=== PATIENT | female | born 1970 | race Caucasian/White ===

== ENCOUNTER 2020-02-27 09:06 | Outpatient (REF) | payer BC, SELFPAY ==
[2020-02-27 13:53] LABS: TSH 1.21 uIU/mL (0.36-3.74)
== END 2020-02-27 09:26 ==
LOC: NCHCN 09:06
PROVIDERS: PCP Nurse Practitioner Family; Visit Provider Nurse Practitioner Family
DX: E03.9 Hypothyroidism, unspecified (principal)
CPT/HCPCS: 84443

== ENCOUNTER 2020-04-05 01:33 | Outpatient (CLI) | payer BC, SELFPAY ==
--- NOTE | 2020-04-05 07:00 | DI.MAMMO_ITS ---
MAMMO SCREENING CLINICAL HISTORY: screening,Z12.39. TECHNIQUE: Bilateral full field digital CC and MLO mammographic images were obtained with 3D tomosyn thesis and utilizing computer aided detection (CAD). COMPARISON: Prior mammograms dating back to 2012, the most recent being September 2018. FINDINGS: Fibroglandular tissue in both breasts is quite dense, this decreasing the sensitivity mammogram for f inding in underlying lesions. There is a microcalcification in the left breast located 9 centimetres in from the nipple which has s ignificantly increased when compared to previous study. Spot Mag CC and spot Mag straight lateral vie ws recommended. No new obvious spiculated masses. There is no significant architectural distortion no r skin thickening-retraction. IMPRESSION: Very dense bilateral fibroglandular tissue. Left breast microcalcification group significantly increa sed from previous. Spot Mag CC and spot Mag straight lateral views recommended. Given the density this patient's fibroglandular tissue I also recommend bilateral breast ultrasound BI-RADS Category 0 - Assessment Incomplete: Need additional imaging evaluation Breast Density - Category D - Extremely dense Breast density Category C or D implies that the patient has dense breast tissue. Dense breast tissue can make it harder to find cancer on a mammogram. Dense breast tissue is also associated with an incr eased risk of breast cancer. This information about the result of the mammogram report was provided to the patient to raise their awareness. Use this report when you speak with the patient about their risks for breast cancer, which includes their family history. At that time, you may recommend additional screening tests (Ultrasoun d or MRI) as these tests may add significant information. A negative radiographic report should not delay biopsy if a dominant or clinically suspicious mass is present. Up to ten percent of cancers are not identified on mammography. A negative report may reinforce clinical impression. Adenosis and dense breasts may obscure an underlying neoplasm. False positive reports average 6 to 10%. Patient will receive a letter notifying them of these results.
== END 2020-04-05 01:53 ==
PROVIDERS: PCP Nurse Practitioner Family; Visit Provider Nurse Practitioner Family
DX: Z12.31 Encounter for screening mammogram for malignant neoplasm of breast (principal); R92.0 Mammographic microcalcification found on diagnostic imaging of breast
CPT/HCPCS: 77063; 77067

== ENCOUNTER 2020-04-14 02:50 | Outpatient (CLI) | payer BC, SELFPAY ==
--- NOTE | 2020-04-14 | DI.US_ITS ---
EXAM: MG MAMMO SCREEN CALL BACK UNI and U/S breast LT limited CLINICAL HISTORY: F/U MAMMO, LT BREAST MICROCALCIFICATION. TECHNIQUE: Craniocaudal and mediolateral oblique Full Field Digital Mammography views of the left br east with Computer Aided Diagnosis followed by Tomosynthesis and left breast ultrasound. COMPARISON: Previous are available for comparison. FINDINGS: Mammography/Tomosynthesis: Masses/Architectural Distortion: None seen. Microcalcifictions: There has been interval increase in number of a grouping of calcifications in the posterior central left breast. Skin Thickening/Nipple Retraction: None. Left breast US: Echotexture: Normal appearance of the glandular tissue. Shadowing: No suspicious foci. Cyst: Multiple simple cysts are seen throughout the sonographically evaluated area of the left breast . Solid lesions: None seen. Ductal dilation: None. IMPRESSION: 1. Interval increase in number of a grouping of microcalcifications in the upper posterior central le ft breast. 2. Biopsy is recommended for further evaluation. 3. The findings were discussed with the patient on the date of the examination. Findings were discus sed with the patient's primary care provider on the date of the examination. BI-RADS Category 4 - Suspicious Abnormality: Biopsy should be considered Breast Density - Category C - Heterogeneously dense The mammogram demonstrates the patient's breast tissue is dense. Dense breast tissue is very common a nd is not abnormal but dense breast tissue can make it harder to find cancer on a mammogram. Also, de nse breast tissue may increase their breast cancer risk. This information [facility] was provided to the patient to raise their awareness. Use this report when you speak wi th the patient about their risks for breast cancer, which includes their family history. At that time , you may recommend for more screening tests (Ultrasound or MRI) as they might be useful based on the ir risk. A negative radiographic report should not delay biopsy if a dominant or clinically suspicious mass is present. Up to ten percent of cancers are not identified on mammography. A negative report may reinforce clinical impression. Adenosis and dense breasts may obscure an underlying neoplasm. False positive reports average 6 to 10%. Patient will receive a letter notifying them of these results.
== END 2020-04-14 03:10 ==
PROVIDERS: PCP Nurse Practitioner Family; Visit Provider Nurse Practitioner Family
DX: R92.0 Mammographic microcalcification found on diagnostic imaging of breast (principal)
CPT/HCPCS: 76642; 77063; 77067

== ENCOUNTER 2020-08-18 15:22 | Outpatient (REF) | payer BC, SELFPAY | END 2020-08-18 15:23 | disposition home or self-care (01) | LOC: LBN 15:22 | PROVIDERS: PCP Nurse Practitioner Family; Visit Provider Nurse Practitioner Family | DX: R30.0 Dysuria (principal) | CPT/HCPCS: 87086 ==

== ENCOUNTER 2020-08-27 01:57 | Outpatient (CLI) | payer BC, SELFPAY ==
[2020-08-27 09:32] LABS: CREATININE 0.8 mg/dL (0.55-1.02)
== END 2020-08-27 01:58 | disposition home or self-care (01) ==
LOC: LBO 01:57
PROVIDERS: PCP Nurse Practitioner Family; Visit Provider Radiology Radiation Oncology
DX: C50.912 Malignant neoplasm of unspecified site of left female breast (principal); Z17.0 Estrogen receptor positive status [ER+]
CPT/HCPCS: 36415; 82565

== ENCOUNTER 2020-10-01 04:20 | Outpatient (CLI) | payer BC, SELFPAY ==
[2020-10-01] MEDS: Gadoterate meglumine 20 ML VIAL 15 ML IVP (08:54)
--- NOTE | 2020-10-01 09:15 | DI.MRI_ITS ---
Exam(s) MR ABDOMEN WO/W EXAM: MR ABDOMEN WO/W CLINICAL HISTORY: LT BREAST CA,C50.912RT LOBE LIVER LESION,K76.9,? HEMANGIOMA,F/U ABNL CHEST TECHNIQUE: Multiplanar multisequence MRA of the Abdomen was performed. CONTRAST MATERIAL: IV Contrast: 15 mL of Dotarem contrast administered. COMPARISON: US USBRUNILTD from 05/13/2014 US USBRUNILTD from 05/13/[address] CHEST W from 09/06/[address] CHEST W from 09/06/2020 FINDINGS: Liver: 17 millimeter circumscribed homogeneous lesion in the posteromedial right lobe of the liver at the level of the right kidney. Low signal on T1 weighted images and high-signal T2 weighted images. Peripheral puddling arterial phase. Homogeneous enhancement venous and delayed phases. The findin gs are consistent with a hemangioma.. Pancreas: Unremarkable. Gallbladderand Bile Ducts: Unremarkable. Adrenals: Unremarkable. Kidneys: Unremarkable. Spleen: Unremarkable. Aorta: Unremarkable. Soft Tissues: Unremarkable. Bone: Unremarkable. Lymph Nodes: Unremarkable. IMPRESSION: Lesion seen on chest CT in the right lobe of the liver is consistent with a hemangioma on MRI. DATA REPOSITORY:
== END 2020-10-01 04:40 ==
PROVIDERS: PCP Nurse Practitioner Family; Visit Provider Radiology Radiation Oncology
DX: C50.912 Malignant neoplasm of unspecified site of left female breast (principal); K76.9 Liver disease, unspecified
CPT/HCPCS: 74183

== ENCOUNTER 2020-12-20 08:58 | Outpatient (CLI) | payer BC, SELFPAY | END 2020-12-20 08:59 | disposition home or self-care (01) | LOC: DI.CM 08:59 | PROVIDERS: PCP Nurse Practitioner Family; Visit Provider Physician Assistant | DX: R07.89 Other chest pain (principal) | CPT/HCPCS: 93010 ==

== ENCOUNTER 2020-12-20 14:59 | Outpatient (REF) | payer BC, SELFPAY ==
[2020-12-21 14:57] LABS: COVID-19 RT-PCR UVMMC Result Negative (Negative)
== END 2020-12-20 15:00 | disposition home or self-care (01) ==
LOC: LBN 14:59
PROVIDERS: PCP Nurse Practitioner Family; Visit Provider Physician Assistant
DX: Z20.822 Contact with and (suspected) exposure to COVID-19 (principal)
CPT/HCPCS: U0003

== ENCOUNTER 2021-03-02 09:31 | Outpatient (REF) | payer BC, SELFPAY ==
--- NOTE | 2021-03-02 08:50 | PAPFT_PTH ---
PATIENT: Kate Hale LOC: [facility] U#:[id number] AGE/SX: 50/F ROOM: RE03/02/[address]: Ruba Camp NP : 1970 BED: DIS: 03/02/2021 SPEC #: [id number] RECD: 03/02/21 12:53 STATUS: VLADIMIR REBritany #: [id number] SHELDON: 03/02/21 08:[address]: Ruba Camp NP DEPT: [facility] Cytology RECD BY: Lolis Iglesias ENTERED: 03/02/21 12:54 SP TYPE: PAPFT OTHR DR: Serafin Chandra NP Tissues: 1 - CX/ENDOCX FOR PAP SMEARS Procedures: PAP THIN PREP/UVM Screening HPV DNA PROBE Comments: [id number]
== END 2021-03-02 09:32 | disposition home or self-care (01) ==
LOC: LBN 09:31
PROVIDERS: PCP Nurse Practitioner Family; Visit Provider Nurse Practitioner Women's Health
DX: Z12.4 Encounter for screening for malignant neoplasm of cervix (principal); Z11.51 Encounter for screening for human papillomavirus (HPV)
CPT/HCPCS: 88142; 87624

== ENCOUNTER 2021-03-04 01:26 | Outpatient (CLI) | payer BC, SELFPAY ==
[2021-03-04 14:07] LABS: HCT 40.7 % (36.0-46.0); HGB 13.4 g/dL (11.2-15.7); MCH 30.5 pg (27.0-33.0); MCHC 32.9 % (32.0-36.0); MCV 92.7 fL (80-95); MPV 10.2 fL (8.0-11.0); Platelet Count 288 10^3/uL (130-400); RBC 4.39 10^6/uL (3.93-5.22); RDW 12.1 % (11.7-14.6); RDW-SD 41.4 fL; WBC 5.96 10^3/uL (4.4-10.8)
[2021-03-04 14:42] LABS: ALT 18 U/L (14-59); AST 13 U/L (15-37); Alkaline Phosphatase 129 U/L (46-116); Anion Gap 9.1 mmol/L (3-11); BUN 14 mg/dL (7-18); Bilirubin, Total 0.5 mg/dL (0.2-1.0); CO2 28.9 mmol/L (21.0-32.0); CREATININE 0.8 mg/dL (0.55-1.02); Calcium 9.3 mg/dL (8.5-10.1); Calculated LDL 156 mg/dL (<100); Chloride 102 mmol/L (98-107); Cholesterol 243 mg/dL (<200); Glucose 83 mg/dL (74-106); HDL Cholesterol 74 mg/dL (40-60); Potassium 3.9 mmol/L (3.5-5.1); Sodium 140 mmol/L (136-145); TSH 1.87 uIU/mL (0.36-3.74); Total Protein 7.4 g/dL (6.4-8.2); Triglyceride 65 mg/dL (<150)
[2021-03-04 16:04] LABS: Hemoglobin A1C 5.1 % (<5.7)
== END 2021-03-04 01:27 | disposition home or self-care (01) ==
LOC: LBO 01:26
PROVIDERS: PCP Nurse Practitioner Family; Visit Provider Nurse Practitioner Family
DX: K50.111 Crohn's disease of large intestine with rectal bleeding (principal); Z13.220 Encounter for screening for lipoid disorders; E03.8 Other specified hypothyroidism; Z13.1 Encounter for screening for diabetes mellitus
CPT/HCPCS: 36415; 80053; 80061; 85027; 83036; 84443

== ENCOUNTER 2022-03-15 02:06 | Outpatient (CLI) | payer BC, SELFPAY ==
[2022-03-15 11:59] LABS: HCT 41.8 % (36.0-46.0); MCH 31.3 pg (27.0-33.0); MCHC 33.5 % (32.0-36.0); MCV 93 fL (80-95); MPV 9.7 fL (8.0-11.0); Platelet Count 302 10^3/uL (130-400); RBC 4.48 10^6/uL (3.93-5.22); RDW 12.4 % (11.7-14.6); RDW-SD 42.8 fL; WBC 6.41 10^3/uL (4.4-10.8)
[2022-03-15 12:39] LABS: ALT 15 U/L (14-59); AST 14 U/L (15-37); Alkaline Phosphatase 108 U/L (46-116); Anion Gap 7.5 mmol/L (3-11); BUN 13 mg/dL (7-18); Bilirubin, Total 0.5 mg/dL (0.2-1.0); CO2 28.5 mmol/L (21.0-32.0); CREATININE 0.8 mg/dL (0.55-1.02); Calcium 9.1 mg/dL (8.5-10.1); Chloride 103 mmol/L (98-107); Estimated GFR 88.05 (mL/min/1.73m2); Glucose 89 mg/dL (74-106); Potassium 3.6 mmol/L (3.5-5.1); Sodium 139 mmol/L (136-145); TSH (W/Ref FT4) 1.28 uIU/mL (0.36-3.74); Total Protein 7.9 g/dL (6.4-8.2)
== END 2022-03-15 02:07 | disposition home or self-care (01) ==
LOC: LBO 02:06
PROVIDERS: PCP Nurse Practitioner Family; Visit Provider Nurse Practitioner Family
DX: E03.9 Hypothyroidism, unspecified (principal); K50.90 Crohn's disease, unspecified, without complications
CPT/HCPCS: 36415; 80053; 85027; 84443

== ENCOUNTER 2023-07-18 05:15 | Outpatient (CLI) | payer BC, SELFPAY ==
[2023-07-18 08:59] LABS: ALT 25 U/L (14-59); AST 15 U/L (15-37); Albumin 3.8 g/dL (3.4-5.0); Alkaline Phosphatase 119 U/L (46-116); Anion Gap 8.5 mmol/L (3-11); BUN 21 mg/dL (7-18); Bilirubin, Total 0.5 mg/dL (0.2-1.0); CO2 29.5 mmol/L (21.0-32.0); CREATININE 0.8 mg/dL (0.55-1.02); Calcium 9.5 mg/dL (8.5-10.1); Chloride 104 mmol/L (98-107); Estimated GFR 86.96 (mL/min/1.73m2); Glucose 89 mg/dL (74-106); Potassium 3.6 mmol/L (3.5-5.1); Sodium 142 mmol/L (136-145); Total Protein 7.8 g/dL (6.4-8.2)
[2023-07-18 09:12] LABS: TSH (W/Ref FT4) 2.07 uIU/mL (0.36-3.74)
[2023-07-19 19:16] LABS: Calculated LDL 208 mg/dL (<100); Cholesterol 313 mg/dL (<200); HDL Cholesterol 88 mg/dL (40-60); Triglyceride 86 mg/dL (<150)
== END 2023-07-18 05:16 | disposition home or self-care (01) ==
LOC: LBO 05:15
PROVIDERS: Nurse Practitioner Women's Health; PCP Nurse Practitioner Family; Visit Provider Nurse Practitioner Family
DX: E78.00 Pure hypercholesterolemia, unspecified (principal); E03.9 Hypothyroidism, unspecified; N95.1 Menopausal and female climacteric states
CPT/HCPCS: 36415; 80053; 80061; 84443

== ENCOUNTER 2023-07-24 16:48 | Emergency (ER) | payer BC, SELFPAY ==
[2023-07-24 16:51] VITALS: BP 179/98; PULSE 87; RESP 15; TEMP 36.4; O2SAT 100
[2023-07-24 16:54] VITALS: BP 179/98; PULSE 87; RESP 15; TEMP 36.4; O2SAT 100
--- NOTE | 2023-07-24 16:54 | W.ED.GENAD ---
Discharge Plan Disposition Patient Disposition: Home Condition: Stable Discharge Details Clinical Impression: Gastritis Primary Care Provider: Serafin Chandra ED Provider: Ryan Lane Home Meds and New Rx's Prescriptions: Continued magnesium 200 mg tablet 400 mg PO DAILY ascorbic acid (vitamin C) 1,000 mg capsule 1 g PO DAILY mesalamine 1.2 gram tablet,delayed release (DR/EC) 1.2 g PO DAILY levothyroxine 75 mcg tablet 75 mcg PO DAILY Qty: 30 0RF Veozah 45 mg tablet 45 mg PO DAILY Qty: 90 3RF Discharge Instructions Instructions: Famotidine (By mouth), Gastritis (ED) Additional Instructions: You were seen in the emergency department for your central abdominal pain that is worse after eating. This is consistent with either a peptic or duodenal ulcer and you are having some mild dark stools with a normal hemoglobin I do not suspect any significant bleeding. You have had problems with your gallbladder in the past and may need an updated HIDA scan to test for biliary dyskinesia. Otherwise I am placing you on the list for surgery follow-up for endoscopy. Your laboratory workup was reassuring for no emergent pathology and we did discuss the options of CT scan but it is best to forego this and lieu of an outpatient ultrasound for now and awaiting endoscopy. If your pain becomes more severe and especially if you get fevers and intractable nausea and vomiting please return and we will perform CT scan at that time. While awaiting definitive follow-up please try [id number] famotidine twice per day to allow for any possible ulcers to heal, this may take up to 2 weeks, if no relief at 2 weeks he may want to see if he can switch to a prescription omeprazole to trial that for 2 more weeks. Referrals: [facility] [Provider Group] (Endoscopy) Serafin Chandra, [employer] [Primary Care Provider] - Discharge Data Discharge Date/Time-TO BE ENTERED AT DEPARTURE: 07/24/23 19:26 HPI General Date/Time Provider Initiated Documentation: 07/24/23 16:54. HPI Narrative: 53 year-old female presents to ED today by POV/ambulating with her with a chief complaint of upper abdominal pain, intermittent, worse about 60 minutes after eating with onset for months. Quality described as burning pain, that resolves a while after it starts, consistent trigger with food, no radiation to fever, shortness of breath, vomiting, endorses some dark stools, denies dizziness, denies palpitations. Severity is described as 5-6/10. Palliating factors include nothing specific attempted. Provoking factors include nothing specific. Events leading up to the incident/Associated Symptoms: Patient has history of ulcerative colitis in remission. Patient not anticoagulated. Related Data Home Medications Medication Instructions Recorded Confirmed mesalamine 1.2 gram tablet,delayed 1.2 g PO DAILY 02/27/20 07/24/23 release levothyroxine 75 mcg tablet 75 mcg PO DAILY #30 tabs 05/14/23 07/24/23 ascorbic acid (vitamin C) 1,000 mg 1 g PO DAILY 06/26/23 07/24/23 capsule magnesium 200 mg tablet 400 mg PO DAILY 06/26/23 07/24/23 fezolinetant 45 mg tablet (Veozah) 45 mg PO DAILY #90 tabs 07/18/23 07/24/23 Previous Rx's Medication Instructions Recorded levothyroxine 75 mcg tablet 75 mcg PO DAILY #30 tabs 05/14/23 fezolinetant 45 mg tablet (Veozah) 45 mg PO DAILY #90 tabs 07/18/23 Allergies Allergy/AdvReac Type Severity Reaction Status Date / Time No Known Allergies Allergy Verified 07/24/23 16:55 General Stated Complaint: Abd Prob LOREE: 3 Review of Systems All systems reviewed & are unremarkable except as noted in HPI and below Exam Narrative Exam Narrative: GENERAL APPEARANCE: Well-nourished, non-toxic, awake and alert, atraumatic, no acute distress. SKIN: Warm, pink, dry, intact, without rashes/lesions/ulcerations. HEAD: Normocephalic, atraumatic, normal hair distribution for gender/age. EYES: Pupils PERRLA, EOMs intact without nystagmus, normal conjunctiva, no exudates on lids/lashes. ENT: Nares patent, no circumoral cyanosis, no facial swelling NECK: Supple, trachea midline, painless cervical ROM. LUNGS/CHEST: Lungs CTA bilaterally- no rhonchi/rales/wheezes diffusely, non-labored respirations, normal A/P diameter, symmetrical expansion, no chest wall deformity HEART (CV/PV): Regular rate and rhythm without murmur, no peripheral edema, no JVD. ABDOMEN: Soft, non-distended, no guarding, epigastric / RUQ tenderness, no CVA tenderness, no Rovsing's, no McBurney's point tenderness. MSK: Normal ROM, no swelling/deformity to bilateral UEs or LEs, moving all extremities without weakness, no cyanosis, spine midline without tenderness, normal curvature. NEURO: Mental Status AAOx4 - alert to person, place, time, events No facial droop, no forehead involvement. Motor: No focal weakness - strength 5/5 in bilateral UEs and LEs, proximal and distal, symmetric. Sensory: sensation intact to light touch globally. Gait normal: patient ambulated without ataxia into ED room. PSYCH: euthymic, cooperative, pleasant, appropriate speech Course Vital Signs Vital signs: Vital Signs Temperature 36.4 C 07/24/23 16:51 Pulse 87 07/24/23 16:51 Respiratory Rate 15 07/24/23 16:51 Blood Pressure 179/98 H 07/24/23 16:51 Pulse Oximetry 100 07/24/23 16:51 Temperature 36.4 C 07/24/23 16:51 Temperature Source Tympanic 07/24/23 16:51 Pulse 87 07/24/23 16:51 Respiratory Rate 15 07/24/23 16:51 Blood Pressure 179/98 H 07/24/23 16:51 Blood Pressure Position Sitting 07/24/23 16:51 Pulse Oximetry 100 07/24/23 16:51 Oxygen Delivery Method Room Air 07/24/23 16:51 Oxygen Flow Rate 0 07/24/23 16:51 Pain Level 8 07/24/23 16:51 Medical Decision Making This dictation utilizes [id number] dictation software and may contain unedited grammatical errors. 53 y/o F presents to ED today with a chief complaint of burning epigastric/RUQ pain that is consistently going on for months, trigger with eating, starts about 60 minutes after eating, fades over the next couple hours. Denies vomiting, endorses dark stool. Patients' medical history: History of migraine, hypercholesterolemia, former smoker, ulcerative colitis, Crohn's disease. Family and social history: Recent family stressors their daughter is choosing which college she wants to go to, patient also does drink occasional hard liquor moderate level. Pertinent exam findings / vital signs include epigastric and right upper quadrant tenderness without peritoneal signs, lungs CTA, stable vitals nontoxic. Differential / pathologies of concern include peptic ulcer, duodenal ulcer, Crohn's flare, esophagitis, biliary colic. Diagnostic studies of: -CBC, CMP, CRP/ESR, lipase, UA, lactate. -CBC shows no leukocytosis, no anemia -Lactate 1.5, do not suspect sepsis -LFTs within normal limits -Lipase within normal limits -UA benign -Inflammatory markers negative -Due to benign nature of labs I did discuss imaging options with the patient but we will defer for now and they will try to schedule an outpatient ultrasound of the right upper quadrant, and outpatient endoscopy and perform trials of famotidine at home for relief of gastritis pain Interventions of: -IV fluids, IV Protonix. ED Course/Assessment/Plan: 53-year-old female presents with epigastric pain that is worse after eating, it is about 60 minutes after eating that she gets this pain, I do suspect that she has a duodenal ulcer. She has moderate alcohol use, has emotional stressors lately and her consistent trigger with p.o. intake is suspicious for ulcerative pathology. Her labs are completely benign for any obstruction of the biliary tree, no signs of sepsis or severe infection. I counseled her on trying famotidine [id number] for couple weeks while they await scheduling of upper endoscopy and possible outpatient ultrasound of the right upper quadrant, discussed with them if any relief from this or failure to relieve they could try prescription omeprazole, strict return criteria for any developing fever, worsening pain, complete constipation, intractable nausea or vomiting Findings not consistent with biliary cholangitis, severe pancreatitis, SBO, intractable nausea or vomiting, sepsis, infection. Disposition of Gastritis. Patient verbalized understanding of the plan and return to ED criteria and engaged in shared decision making. Medical Records Medical records reviewed: Yes I reviewed the patient's medical records. Lab Data Lab results reviewed: Yes I reviewed the patient's lab results. Labs: Laboratory Tests Range/Units 07/24/23 07/24/23 17:20 17:30 WBC (4.4-10.8) 10^3/uL 9.79 RBC (3.93-5.22) 10^6/uL 4.52 Hgb (11.2-15.7) g/dL 14.0 Hct (36.0-46.0) % 42.5 MCV (80-95) fL 94 MCH (27.0-33.0) pg 31.0 MCHC (32.0-36.0) % 32.9 RDW (11.7-14.6) % 12.9 Plt Count (130-400) 10^3/uL 297 MPV (8.0-11.0) fL 10.0 Immature Gran % % 0.5 Neutrophils % % 70.9 Lymphocytes % % 16.3 Monocytes % % 7.6 Eosinophils % % 4.0 Basophils % % 0.7 Nucleated RBC % (0.0-0.3) % 0.0 Absolute Neutrophils (1.2-6.7) 10^3/uL 6.94 H Absolute Lymphocytes (1.2-3.4) 10^3/uL 1.60 Absolute Monocytes (0.1-0.8) 10^3/uL 0.74 Absolute Eosinophils (0.0-0.7) 10^3/uL 0.39 Absolute Basophils (0.0-0.2) 10^3/uL 0.07 ESR (0-30) mm/hr 23 VBG Lactate (0.6-1.4) mmol/L 1.5 H Sodium (136-145) mmol/L 141 Potassium (3.5-5.1) mmol/L 3.8 Chloride (98-107) mmol/L 105 Carbon Dioxide (21.0-32.0) mmol/L 26.3 Anion Gap (3-11) mmol/L 9.7 BUN (7-18) mg/dL 20 H Creatinine (0.55-1.02) mg/dL 1.0 Est GFR (CKD-EPI 2020) (mL/min/1.73m2) 66.53 Glucose (74-106) mg/dL 89 Calcium (8.5-10.1) mg/dL 9.4 Total Bilirubin (0.2-1.0) mg/dL 0.3 Conjugated Bilirubin (0.0-0.2) mg/dL 0.1 AST (15-37) U/L 15 ALT (14-59) U/L 21 Alkaline Phosphatase (46-116) U/L 129 H Troponin I (< or =60) ng/L < 50 C-Reactive Protein (<or=0.5) mg/dL 0.59 H Total Protein (6.4-8.2) g/dL 8.2 Albumin (3.4-5.0) g/dL 4.0 Lipase (16-77) U/L 45 Urine Color (Yellow) Yellow Urine Clarity (Clear) Clear Urine pH (5-8) 6.0 Ur Specific Viola (1.005-1.025) 1.015 Urine Protein (Neg-Trace) mg/dL Negative Urine Ketones (Negative) mg/dL Negative Urine Blood (Negative) Negative Urine Nitrite (Negative) Negative Urine Bilirubin (Negative) Negative Urine Urobilinogen (Up to 0.2) mg/dL 0.2 Ur Leukocyte Esterase (Negative) Negative Urine Glucose (Negative) mg/dL Negative Quality:SDOH Health Related Social Needs: No Data to Display PFSH All Active Problems (Updated 07/24/23 @ 18:25 by KASSANDRA Newell) Gastritis (Acute) Vasomotor symptoms due to menopause (Acute) Declining rx therapy at this time, will consider [facility] Pelvic floor dysfunction (Acute) Referral to pelvic floor PT Migraine (Chronic) [place]-menopausal (Acute) Hypercholesteremia (Acute) Former smoker (Acute) Quit in 2000 Hypothyroidism (Chronic) Ulcerative colitis (Chronic) 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 Crohn disease (Chronic) Medical History DCIS (ductal carcinoma in situ) of breast Lumpectomy in 2020 Breast calcification, left History of shingles Bronchitis (~12/02/11) Influenza with respiratory manifestation other than pneumonia (~12/02/11) Surgical History H/O tubal ligation (~12/29/05) Family History Mother , age 73 Lung cancer Hyperlipidemia Hypertension Father , age 78 Heart disease Hyperlipidemia Alzheimer disease Brother Diabetes Hyperlipidemia Hypertension Daughter No problems noted. Maternal Grandfather , age 60 Alcohol abuse Lung cancer Paternal Grandfather , age 80 Heart disease Maternal Grandmother , age 50 Stroke Paternal Grandmother , age 75 No problems noted. Social History Smoking/Tobacco Use Status: Former Tobacco Use tobacco type: cigarettes Quit Date: 05/24/00 Tobacco: How many years used: 15 Second Hand Exposure: Yes Smoking risk assessment performed?: Yes Alcohol Intake: current Alcohol Intake frequency: a few times a month Alcohol type: hard liquor Drug use: Never Substance use type: does not use Caregiver/Support person: No Household members: spouse and children Housing: house Communication Needs: None Do you need help understanding health information?: Never Pets and animals: Yes Pets and animals: dog(s) Sexually active: Yes Do you think of yourself as: straight/heterosexual Current gender identity: female What is your relationship status?: How often do you talk on the phone with friends or family?: three or more times per week How often do you attend cheondoism or congregational services?: decline to answer Do you belong to any clubs or organized social groups?: no Panel score (0-1 are the most socially isolated patients): 2 What type of physical activity do you participate in: none Special jasmeet needs: No Seatbelt use: always Helmet use: Yes Helmet use: always Drive intox or ride w/intox stage driver: No Do you feel safe in your relationship?: Yes Victim of physical abuse: No Victim of emotional abuse: No Victim of sexual abuse: No Would you like helpful sources: No
[2023-07-24] MEDS: Pantoprazole 40 MG VIAL IVP (17:31)
[2023-07-24] MEDS: Lactated Ringers 1,000 ML 1000 ML IV (17:43)
[2023-07-24 17:50] LABS: Lactate 1.5 mmol/L (0.6-1.4)
[2023-07-24 17:52] LABS: Abs Immature Grans 0.05 10^3/uL (0.0-0.06); Absolute Basophil Count 0.07 10^3/uL (0.0-0.2); Absolute Eosinophil Count 0.39 10^3/uL (0.0-0.7); Absolute Monocyte Count 0.74 10^3/uL (0.1-0.8); Absolute Neutrophil Count 6.94 10^3/uL (1.2-6.7); Basophils % 0.7 %; HCT 42.5 % (36.0-46.0); Immature Grans % 0.5 %; Lymphocytes % 16.3 %; MCHC 32.9 % (32.0-36.0); MCV 94 fL (80-95); Monocytes % 7.6 %; Neutrophils % 70.9 %; Platelet Count 297 10^3/uL (130-400); RBC 4.52 10^6/uL (3.93-5.22); RDW 12.9 % (11.7-14.6); RDW-SD 44.4 fL; WBC 9.79 10^3/uL (4.4-10.8)
[2023-07-24 17:53] LABS: Bilirubin Negative (Negative); Blood Negative (Negative); Clarity Clear (Clear); Glucose Negative (Negative); Ketones Negative (Negative); Leukocyte Esterase Negative (Negative); Nitrite Negative (Negative); Specific Gravity 1.015 (1.005-1.025); Urobilinogen 0.2 mg/dL (Up to 0.2)
[2023-07-24 17:53] LABS: ESR 23 mm/hr (0-30)
[2023-07-24 18:16] LABS: ALT 21 U/L (14-59); AST 15 U/L (15-37); Alkaline Phosphatase 129 U/L (46-116); Anion Gap 9.7 mmol/L (3-11); BUN 20 mg/dL (7-18); Bilirubin, Direct 0.1 mg/dL (0.0-0.2); Bilirubin, Total 0.3 mg/dL (0.2-1.0); C-Reactive Protein 0.59 mg/dL (<or=0.5); CO2 26.3 mmol/L (21.0-32.0); Calcium 9.4 mg/dL (8.5-10.1); Chloride 105 mmol/L (98-107); Estimated GFR 66.53 (mL/min/1.73m2); Glucose 89 mg/dL (74-106); Lipase 45 U/L (16-77); Potassium 3.8 mmol/L (3.5-5.1); Sodium 141 mmol/L (136-145); Total Protein 8.2 g/dL (6.4-8.2); Troponin I < 50 ng/L (< or =60)
[2023-07-24 19:25] VITALS: BP 148/75; PULSE 64; RESP 18; O2SAT 99
--- NOTE | 2023-07-25 12:06 | NUR.NOTE ---
Accessed chart to determine if a referral was done to surgery for endoscopy. No referral found and none documented. Nursing Note:
== END 2023-07-24 19:26 | disposition home or self-care (01) ==
PROVIDERS: Emergency Provider Physician Assistant; PCP Nurse Practitioner Family
DX: K29.70 Gastritis, unspecified, without bleeding (principal); Z87.891 Personal history of nicotine dependence
CPT/HCPCS: 36415; 80048; 80076; 83690; 85652; 96374; 99284; 81003; 83605; 84484; 85025; 86140; 99283; J2470

== ENCOUNTER 2023-09-19 11:38 | Day surgery (SDC) | payer BC, SELFPAY ==
--- NOTE | 2023-09-18 20:09 | W.PM.DSUDISC ---
Date of service: 09/19/23 Time of Service: 14:25 Discharge Plan Disposition Patient Disposition: Home Condition: Good Discharge Details Reason For Visit: EGD Attending Provider: Rajesh Hillman Primary Care Provider: Serafin Chandra Home Meds and New Rx's Prescriptions: Continued magnesium 200 mg tablet 400 mg PO DAILY mesalamine 1.2 gram tablet,delayed release (DR/EC) 1.2 g PO DAILY famotidine 20 mg tablet 20 mg PO BID levothyroxine 75 mcg tablet 75 mcg PO DAILY Qty: 90 3RF Discharge Instructions Instructions: Hiatal hernia Additional Instructions: Sonya, we are able to complete your upper endoscopy today without any difficulty. There are some signs of a very small sliding hiatal hernia. This occurs when the top part of your stomach slips above the diaphragm. I do not see any signs of irritation or inflammation around it, and I be skeptical that this is causing any of your symptoms. The true connection of your esophagus onto your stomach, which is known as the GE junction also looks fine. There may be just a little bit of mild reflux occurring here. But certainly nothing worrisome. The lining of your stomach looks okay at this point. I do not see any signs of ulceration or irritation. Similarly, the lining of your duodenum, which is the first part of your small intestine right your stomach empties into looks okay to the naked eye. I did do biopsies of the duodenum, stomach, GE junction, and esophagus to be thorough. There are some forms of gastritis or esophagitis that are not obvious by visual exam. They can also use these biopsies to test for Helicobacter pylori like we talked about beforehand. Will probably take a week or so to get the results of all the biopsies, but as soon as we have them, the office will be in touch with any other recommendations. In the meantime, I would continue with the famotidine, as there does seem to be some temporal relation with the initiation of the medication and improvement of your symptoms. Furthermore, you can certainly get gastritis, or irritation of the stomach from increase stomach acid that response to treatment with medication, despite the absence of obvious ulceration. If you need anything in the meantime, please do not hesitate to call or ask at any point. 1. If tolerated, consume a soft, low fiber diet for 1-2 days[address] not drive, drink alcohol, operate machinery, make critical decisions, or do activities that require coordination or balance for 24 hours. 3. You may experience a sore throat for 24 to 48 hours. You may use throat lozenges or gargle with warm salt water to relieve the discomfort. 4. Because air was put into your stomach during the procedure, you may experience some belching. 5. Go directly to the emergency room if you notice any of the following: Develop chills (warm to touch), or if you have a thermometer and your temperature is above 101 Difficulty breathing or difficultly swallowing Persistent vomiting Severe abdominal pain, other than gas cramps Severe chest pain Black, tarry stools Any bleeding ? exceeding one tablespoon 6. Call your physician if the site where your intravenous was started becomes red, swollen, painful, and warm to touch. 7. Your physician has reviewed your pre-procedure medications. Please continue to take those medications as previously ordered. You will be given specific information/education regarding any changes to your medications before leaving. Stand Alone Forms: Anesthesia Discharge InstGerardo Reed (DSU) Activity:: Activity as Tolerated Discharge Orders Discharge Orders: Discharge Order (Routine); Ordered 09/18/23 Ordered By: Rajesh Hillman DS: Diagnosis Discharge Diagnosis (1) Recurrent epigastric abdominal pain: Status: Acute Asessment and Plan: Follow-up on biopsy results
--- NOTE | 2023-09-18 20:10 | W.PM.ENDDOP ---
Date of service: 09/19/23 Time of Service: 14:28 Endoscopy Report DATE OF PROCEDURE: 09/19/23 PRE-OP DIAGNOSIS: gastritis POST-OP DIAGNOSIS: other (Small sliding hiatal hernia) PROCEDURE: EGD with biopsies SURGEON: Rajesh Hillman ANESTHESIA TYPE: General:No Airway ESTIMATED BLOOD LOSS: 10 PATHOLOGY: other (Random biopsies of the duodenum, gastric antrum, gastric body, GE junction, and esophagus) COMPLICATIONS: None DISPOSITION: same day INDICATIONS: Kate is a 53 year old woman with refractory midepigastric abdominal pain suspicious for gastritis PROCEDURE START TIME: 14:05 PROCEDURE END TIME: 14:15 FINDINGS: Normal-appearing GE junction and Z-line at 38 cm from the incisors. Possible sliding hiatal hernia. PROCEDURE DESCRIPTION: After the initiation of anesthesia, and with the assistance of a bite block, I advanced a standard gastroscope through the mouth past the hypopharynx and into the esophagus.? Under the direct vision of the scope, I advanced down the esophagus towards the stomach.? The upper, mid, and lower esophagus were all normal-appearing. The Z-line was regular, and measured 38 cm from the incisors. There was a little bit of mobility of the GE junction across what appeared to be the diaphragm. I did traverse the GE junction into the stomach, and insufflated into the rugae were obliterated. I performed retroflexion. Again, there are some subtle features that seem consistent with a sliding hiatal hernia. I do not see any signs of irritation around the GE junction, or the gastric cardia. Gastric mucosa was normal and healthy appearing. I did not see any signs of inflammation, irritation or ulceration. I advanced down around the incisura angularis across the antrum and pylorus, and into the duodenum. I was able to navigate down to about the third portion of the duodenum. Duodenal mucosa was pink and healthy appearing, with some slight bile staining. I did not see any signs of ulceration here. I did perform random biopsies of the duodenum with cold forceps. There was minimal bleeding. I brought the camera back up into the stomach proper, and examined it once again. Similarly, I did not see any signs of active inflammation. I did perform random biopsies of the gastric antrum and body to rule out other forms of gastritis or Helicobacter pylori. I then brought the camera back up to the GE junction. Again, it measured about 38 cm from the incisors. Cold forceps biopsies of the GE junction were performed. I also performed biopsies of the distal esophagus and midesophagus to rule out esophagitis. I then put the camera back into the stomach and emptied it. The camera was then brought out along the length of the esophagus 1 last time. No other abnormalities were appreciated.
[2023-09-19 11:55] VITALS: BP 147/90; PULSE 71; RESP 18; TEMP 36.3; O2SAT 99
[2023-09-19] MEDS: Lactated Ringers 1,000 ML 80 ML IV (12:29)
--- NOTE | 2023-09-19 13:52 | W.ANESPRE ---
General Info Date of Service Date Performed: 09/19/23 Height: 5 ft 7 in Weight: 69.5 kg Body Mass Index (BMI): 24.0 Surgical Procedure: Operation Date: 09/19/23 13:20 Proposed Procedure Side Surgeon p Gastroscopy Rajesh Hillman MD Actual Procedure Side Surgeon p Gastroscopy Not Applicable Rajesh Hillman MD Pre-Op Diagnosis Post-Op Diagnosis EGD Meds Allergies and Home Medications Allergies Allergy/AdvReac Type Severity Reaction Status Date / Time No Known Allergies Allergy Verified 09/19/23 12:08 Home Medication Medication Instructions Recorded mesalamine 1.2 gram tablet,delayed 1.2 g PO DAILY 02/27/20 release magnesium 200 mg tablet 400 mg PO DAILY 06/26/23 levothyroxine 75 mcg tablet 75 mcg PO DAILY #90 tabs 07/26/23 famotidine 20 mg tablet 20 mg PO BID 08/30/23 Current Visit Medications: Current Medications Generic Name Dose Route Start Last Admin Trade Name Freq PRN Reason Stop Dose Admin Hyoscyamine Sulfate 0.125 mg 09/18/23 20:12 Hyoscyamine 0.125 Mg Sl/Oral/Chew SL 10/18/23 20:11 DIRECTED PRN Ringer's Solution 1,000 mls @ 80 mls/hr 09/19/23 06:00 09/19/23 12:29 IV 10/18/23 23:59 80 mls/hr INFUSION AURE Administration IV Miscellaneous Supplies 1 each 09/19/23 06:00 Iv Access IV 10/18/23 23:59 DIRECTED AURE Ondansetron HCl 4 mg 09/18/23 20:12 Ondansetron 4 Mg/2 Ml Vial IVP 10/18/23 20:11 Q4H PRN PRN Nausea / Vomiting Sodium Chloride 0 ml 09/19/23 06:00 Normal Saline Flush 10 Ml Syr IV 10/18/23 23:59 PRN PRN Sodium Chloride 0 ml 09/19/23 06:00 Normal Saline 10 Ml Vial IJ 10/18/23 23:59 DIRECTED PRN Sterile Water 0 ml 09/19/23 06:00 Water,Injection,Sterile 10 Ml Vial IJ 10/18/23 23:59 DIRECTED PRN PFSH Active Problems Active Problems: Problem Status Onset Code Recurrent epigastric abdominal pain R10.13 Biliary dyskinesia K82.8 Vasomotor symptoms due to menopause N95.1 Pelvic floor dysfunction M62.89 Migraine G43.909 [place]-menopausal N95.1 Hypercholesteremia E78.00 Former smoker Z87.891 Hypothyroidism E03.9 Ulcerative colitis K51.90 Arthropathy M12.9 Crohn disease K50.90 Medical History Medical History DCIS (ductal carcinoma in situ) of breast Lumpectomy in 2020 Breast calcification, left History of shingles Bronchitis (~12/02/11) Influenza with respiratory manifestation other than pneumonia (~12/02/11) Surgical History Surgical History History of esophagogastroduodenoscopy (~08/2023) H/O tubal ligation (~12/29/05) Tobacco Smoking/Tobacco Use Status: Former Tobacco Use Passive smoking exposure: Yes Second hand exposure: Yes Alcohol Alcohol Intake: current Alcohol intake frequency: a few times a month Alcohol type: hard liquor Substance Use Substance use: Never Substance use type: does not use Vital Signs and Lab Results Vital Signs Most Recent Vital Signs in EMR: Most Recent Vital Signs Temp Pulse Resp BP Pulse Ox 36.3 C L 71 18 147/90 H 99 09/19/23 11:55 09/19/23 11:55 09/19/23 11:55 09/19/23 11:55 09/19/23 11:55 Point of Care Results Point of Care Results: POC- Test(urine) Negative 09/19/23 12:28 Lab Results Blood Type / Crossmatch: No Data to Display Complete Blood Count: No Data to Display Complete Metabolic Panel: No Data to Display Liver Function Panel: No Data to Display Coagulation Panel: No Data to Display Cardiac Panel: No Data to Display Arterial Blood Gas: No Data to Display Venous Blood Gas: No Data to Display Pancreas Panel: No Data to Display Thyroid Panel: No Data to Display Infectious Disease: No Data to Display Blood Cultures: No Data to Display Toxicology Panel: No Data to Display Anesthesia Assessment and Plan Anesthesia History Personal History: No History of Anesthesia Complications Family History: No Family History of Anesthesia Complications Exercise Tolerance Exercise Tolerance: Metabolic Equivalents>4 Pertinent Negatives Pertinent Negatives: No Symptoms of GERD Cardiac & Pulmonary Exam Cardiac Exam: Normal S1/S2 Heart Sounds Pulmonary Exam: Clear Bilateral Breath Sounds Implantable Cardiac Device Does patient have a Pacemaker or an ICD?: No Airway Exam Known Difficult Airway: No Mallampati Class: 2 Mouth Opening: Normal (> 3cm) Thyromental Distance: Greater than 3 cm Neck Range of Motion: Full ROM Neck Circumference: Normal Teeth Condition: Normal Dentition ASA Classification ASA Score: ASA 2 Emergency Case?: No NPO Status NPO Status: NPO Clears >2 hours, Solids >8 hours Anesthesia Plan Resuscitation Status: Full Code Anesthesia Technique: General Anesthesia Airway Planned: Natural Airway Monitors Used: Standard Monitors
[2023-09-19 13:53] VITALS: BMI 24.0
--- NOTE | 2023-09-19 14:08 | STOM_PTH ---
PATIENT: Kate Hale LOC: [facility] U#:[id number] AGE/SX: 53/F ROOM: RE09/19/[address]: Rajesh Hillman MD : 1970 BED: DIS: 09/19/2023 SPEC #: [id number] RECD: 09/19/23 16:50 STATUS: [facility] #: [id number] SHELDON: 09/19/23 14:[address]: Rajesh Hillman DEPT: Surgical Specimen RECD BY: Lolis Iglesias ENTERED: 09/19/23 16:52 SP TYPE: STOMACH OTHR DR: Serafin Chandra, CHILD CARE ASSOCIATE Tissues: 1 - BIOPSY BOWEL 2 - STOMACH BIOPSY 3 - STOMACH BIOPSY 4 - ESOPHAGUS BIOPSY 5 - ESOPHAGUS BIOPSY Procedures: GROSS AND MICRO LEVEL 4 Comments: [id number]
[2023-09-19 14:21] VITALS: BP 137/85; PULSE 80; RESP 18; TEMP 36.2; O2SAT 96
--- NOTE | 2023-09-19 14:30 | W.ANESPOSTOP ---
Postoperative Evaluation Date, Time and Location Date Performed: 09/19/23 Time Performed: 14:30 Patient Location: Day Surgery Unit Vital Signs Most Recent Imported Vital Signs: Most Recent Vital Signs Temp Pulse Resp BP Pulse Ox 36.2 C L 80 18 137/85 96 09/19/23 14:21 09/19/23 14:21 09/19/23 14:21 09/19/23 14:21 09/19/23 14:21 Pain Score Most Recent Pain Score: Most Recent Pain Score Pain Level 0 09/19/23 14:21 Assessment Mental Status: Awake (Alert & Oriented to Patient Baseline) Airway and Respiratory Function: Patent airway with normal (patient baseline) respiratory exam Cardiovascular Function: Hemodynamically Stable Hydration Status: Adequately Hydrated Nausea & Vomiting: No Nausea or Vomiting Pain: Pt. Denies Any Pain Peripheral Nerve Block: Patient did not receive a nerve block
[2023-09-19 14:50] VITALS: BP 143/81; PULSE 68; RESP 16; TEMP 36; O2SAT 99
== END 2023-09-19 15:03 | disposition home or self-care (01) ==
LOC: SUR 11:38
PROVIDERS: PCP Nurse Practitioner Family; Visit Provider Surgery
PROC: 0DJ68ZZ Inspection of Stomach, Via Natural or Artificial Opening Endoscopic (ICD-10-PCS; CPT 43235; principal; 2023-09-19 13:15)
DX: R10.13 Epigastric pain (principal); K44.9 Diaphragmatic hernia without obstruction or gangrene; K22.89 Other specified disease of esophagus
CPT/HCPCS: 43239; 81025; 88305; J2001; J2704

== ENCOUNTER 2023-12-13 14:58 | Outpatient (REF) | payer BC, SELFPAY ==
[2023-12-13 23:21] LABS: COVID-19 PCR Negative (Negative); Influenza A PCR Negative (Negative); Influenza B PCR Negative (Negative); RSV PCR Negative (Negative)
[2023-12-13 23:51] LABS: Source Nasopharynx
== END 2023-12-13 14:59 | disposition home or self-care (01) ==
LOC: LBN 14:58
PROVIDERS: PCP Nurse Practitioner Family; Visit Provider Nurse Practitioner Family
DX: J98.8 Other specified respiratory disorders (principal)
CPT/HCPCS: 87637

== ENCOUNTER 2023-12-13 15:07 | Outpatient (CLI) | payer BC, SELFPAY ==
--- NOTE | 2023-12-13 15:00 | DI.RAD_ITS ---
Exam(s) XR CHEST 2V PA LATERAL EXAM: XR CHEST 2V PA LATERAL CLINICAL HISTORY: Cough, R05.9. TECHNIQUE: 2D digital imaging was performed. COMPARISON: CT CT CHEST W from 09/06/2020 FINDINGS: 2 views: Heart size is normal. The mediastinum is not widened. The lateral view there is some infiltrate evident over heart shadow which is most probably in the marta gular segment the left lung, given that there was some mild infiltrate at this level on CT scan of [facility] 2020. On the frontal view there is also a 1.5 by 1.0 cm density projected over the right lower shahzad ng field which is possibly a nodule. It is not seen on the lateral view. No other nodules evident. No pleural effusions. IMPRESSION: Bilateral findings as above. Recommend follow-up chest CT scan given the history here. DATA REPOSITORY: RADIATION DOSE DELIVERED:
== END 2023-12-13 15:27 ==
LOC: DI 15:16
PROVIDERS: PCP Nurse Practitioner Family; Visit Provider Nurse Practitioner Family
DX: R05.9 Cough, unspecified (principal); R91.8 Other nonspecific abnormal finding of lung field
CPT/HCPCS: 71046

== ENCOUNTER 2024-03-10 02:27 | Outpatient (CLI) | payer BC, SELFPAY ==
[2024-03-10 12:40] LABS: HCT 43.1 % (36.0-46.0); HGB 14.3 g/dL (11.2-15.7); MCHC 33.2 % (32.0-36.0); MCV 94 fL (80-95); MPV 9.5 fL (8.0-11.0); Platelet Count 262 10^3/uL (130-400); RBC 4.61 10^6/uL (3.93-5.22); RDW-SD 41.3 fL; WBC 5.72 10^3/uL (4.4-10.8)
[2024-03-10 12:53] LABS: Hemoglobin A1C 5.1 % (<5.7)
[2024-03-10 13:15] LABS: ALT 15 U/L (14-59); AST 14 U/L (15-37); Alkaline Phosphatase 114 U/L (46-116); Anion Gap 7.9 mmol/L (3-11); BUN 11 mg/dL (7-18); Bilirubin, Total 0.42 mg/dL (0.2-1.0); CO2 28.1 mmol/L (21.0-32.0); CREATININE 0.9 mg/dL (0.55-1.02); Calcium 9.3 mg/dL (8.5-10.1); Calculated LDL 179 mg/dL (<100); Chloride 106 mmol/L (98-107); Cholesterol 285 mg/dL (<200); Glucose 90 mg/dL (74-106); HDL Cholesterol 88 mg/dL (40-60); Potassium 3.9 mmol/L (3.5-5.1); Sodium 142 mmol/L (136-145); TSH (W/Ref FT4) 1.15 uIU/mL (0.36-3.74); Total Protein 7.8 g/dL (6.4-8.2); Triglyceride 93 mg/dL (<150)
== END 2024-03-10 02:28 | disposition home or self-care (01) ==
LOC: LBO 02:27
PROVIDERS: PCP Nurse Practitioner Family; Visit Provider Nurse Practitioner Family
DX: Z13.1 Encounter for screening for diabetes mellitus (principal); Z13.220 Encounter for screening for lipoid disorders; E78.00 Pure hypercholesterolemia, unspecified; E03.8 Other specified hypothyroidism; E06.3 Autoimmune thyroiditis; K50.111 Crohn's disease of large intestine with rectal bleeding
CPT/HCPCS: 36415; 80053; 80061; 85027; 83036; 84443

== ENCOUNTER 2024-06-30 11:32 | Outpatient (REF) | payer BC, SELFPAY ==
--- NOTE | 2024-06-30 10:30 | PAPFT_PTH ---
PATIENT: Kate Hale LOC: [facility] U#:[id number] AGE/SX: 54/F ROOM: RE06/30/[address]: Ruba Camp NP : 1970 BED: DIS: 06/30/2024 SPEC #: [id number] RECD: 06/30/24 17:06 STATUS: VLAD[facility]IR [facility] #: [id number] SHELDON: 06/30/24 10:[address]: Ruba Camp NP DEPT: [facility] Cytology RECD BY: Lolis Iglesias ENTERED: 06/30/24 17:07 SP TYPE: PAPFT OTHR DR: Serafin Chandra NP Tissues: 1 - CX/ENDOCX FOR PAP SMEARS Procedures: PAP THIN PREP/[facility] Screening HPV DNA PROBE Comments: [id number] (HPV 16 & 18/45)
== END 2024-06-30 11:33 | disposition home or self-care (01) ==
LOC: LBN 11:32
PROVIDERS: PCP Nurse Practitioner Family; Visit Provider Nurse Practitioner Women's Health
DX: Z12.4 Encounter for screening for malignant neoplasm of cervix (principal)
CPT/HCPCS: 88142; 87624